=== PATIENT | male | born 1970 | race Two or more races ===

== ENCOUNTER 2016-11-20 10:29 | Emergency (ER) | payer OTHER ==
[2016-11-20 10:36] VITALS: TEMP 98; BMI 25.8
--- NOTE | 2016-11-20 11:17 | PDOC ---
History of Present Illness - History of Present Illness Initial Comments: 11/20/16 11:46 The patient is a 46 year old male, with no significant past medical history, who presents to the emergency department with 3 days of progressive testicular pain s/p lifting 80 pound bags on Saturday when he was working on his sidewalk. The patient reports his pain as pressure and throbbing to the region where his scrotal sack meets the base of his penile shaft. He states the pain was 4/10 on Saturday, however, has progressed to 7/10 in severity today. He denies taking medication for pain. The patient reports having scary orange urine on Saturday morning. The patient states his urine is yellow today, but cloudy. He denies abdominal pain. He states he is in a monogamous relationship for 7 years, but denies the use of condoms. He denies chest pain, shortness of breath, headache and dizziness. He denies fever, chills, nausea, vomit, diarrhea and constipation. He denies dysuria, frequency, urgency and hematuria. Allergies: NKDA Past surgical history: none reported Social history: Pt admits to occasional alcohol consumption. He reports he quit smoking tobacco 3 years ago, but smoked a pack a day for 5 years. <Phyllis Sheppard - Last Filed: 11/20/16 15:15> - General History Source: Patient Exam Limitations: No Limitations <Yvrose Canseco - Last Filed: 11/21/16 10:33> - General Chief Complaint: Pain Stated Complaint: testicular PAIN Time Seen by Provider: 11/20/16 10:58 Past History <Phyllis Sheppard - Last Filed: 11/20/16 15:15> - Past Medical History Other medical history: none - Psycho/Social/Smoking Cessation Hx Anxiety: No Suicidal Ideation: No Smoking History: Never smoked Have you smoked in the past 12 months: No Information on smoking cessation initiated: No Hx Alcohol Use: No Drug/Substance Use Hx: No Substance Use Type: None <Yvrose Canseco - Last Filed: 11/21/16 10:33> - Past Medical History Allergies/Adverse Reactions: Allergies Allergy/AdvReac Type Severity Reaction Status Date / Time No Known Allergies Allergy Verified 11/20/16 10:32 Home Medications: Ambulatory Orders Ciprofloxacin [Cipro -] 500 mg PO Q12H #10 tablet 11/20/16 Naproxen [Naprosyn -] 500 mg PO BID PRN #14 tablet 11/20/16 Oxycodone HCl/Acetaminophen [Percocet 5-325 mg Tablet -] 1 tab PO TID PRN #10 tablet MDD 3 11/20/16 Review of Systems - Review of Systems Able to Perform ROS?: Yes Comments:: 11/20/16 11:46 CONSTITUTIONAL: Absent: fever, no chills, no fatigue EYES: Absent: visual changes ENT: Absent: ear pain, no sore throat CARDIOVASCULAR: Absent: chest pain, no palpitations RESPIRATORY: Absent: cough, no SOB GASTROINTESTINAL: Absent: abdominal pain, no nausea, no vomiting, no constipation, no diarrhea GENITOURINARY: (+) cloudy urine and scrotal/testicular pain. Absent: dysuria, no frequency, no hematuria MUSCULOSKELETAL: Absent: back pain, no arthralgia, no myalgia SKIN: Absent: rash NEURO: Absent: headache <Phyllis Sheppard - Last Filed: 11/20/16 15:15> *Physical Exam - Vital Signs Last Vital Signs Temp Pulse Resp BP Pulse Ox 98.0 F 68 18 139/91 100 11/20/16 10:33 11/20/16 10:33 11/20/16 10:33 11/20/16 10:33 11/20/16 10:33 - Physical Exam Comments: 11/20/16 11:47 GENERAL: The patient is in no acute distress. HEAD: Normal with no signs of trauma. EYES: PERRLA, EOMI, sclera anicteric, conjunctiva clear. ENT: Ears normal, nares patent, oropharynx clear without exudates. Moist mucous membranes. NECK: Normal range of motion, supple without lymphadenopathy, JVD, or masses. LUNGS: Breath sounds equal, clear to auscultation bilaterally. No wheezes, and no crackles. HEART:Regular rate and rhythm, normal S1 and S2 without murmur, rub or gallop. ABDOMEN: Soft, nontender, normoactive bowel sounds. No guarding, no rebound. No masses palpable. EXTREMITIES: Normal range of motion, no edema. No clubbing or cyanosis. No erythema, or tenderness. NEUROLOGICAL: Cranial nerves II through XII grossly intact. Normal speech. No focal neurological deficits. MUSCULOSKELETAL: Back non-tender to palpation, no CVA tenderness SKIN: Warm, Dry, normal turgor, no rashes or lesions noted. GENITAL EXAM: +Tenderness at superior pole of bilateral testicles. No palpable hernias. No scrotal enlargement. No erythema or bruising. <Phyllis Sheppard - Last Filed: 11/20/16 15:15> - Vital Signs Last Vital Signs Temp Pulse Resp BP Pulse Ox 98.0 F 68 18 139/91 100 11/20/16 10:33 11/20/16 10:33 11/20/16 10:33 11/20/16 10:33 11/20/16 10:33 <AjithYvrose - Last Filed: 11/21/16 10:33> ED Treatment Course - RADIOLOGY Radiograph Interpretation: 11/20/16 13:27 EXAM#: TYPE/EXAM: RESULT: [id number] US/SCROTUM AND CONTENTS US HISTORY PROVIDED: Testicular pain. Real time and doppler evaluation of the testes demonstrates the following: The testes are normal in size with the right testicle measuring 5.0 x 2.5 x 2.2 cm and the left testicle measuring 4.8 x 2.4 x 2.0 cm. They are normal in texture with no evidence of testicular masses. Normal arterial flow is seen within both testes with no evidence of torsion. No epididymal abnormalities are present. There is no evidence of scrotal fluid collections. There is a moderate-sized varicocele on the left side. IMPRESSION: Left-sided varicocele, otherwise normal testicular sonogram with no evidence of torsion or acute pathology. Reported By: Rodrick Kuhn MD 11/20/16 1302 EXAM#: TYPE/EXAM: RESULT: [id number] CT/SPIRAL- RENAL-STONE CT HISTORY PROVIDED: Right flank pain TECHNIQUE: Sequential axial images were obtained from the domes of the diaphragm through the symphysis pubis utilizing urinary tract calculi protocol. The lung bases are clear. There is an 11 mm calcification within the right renal pelvis consistent with a partially obstructing calculus. There is slight dilatation of the upper collecting system. There are 2 small calculi within the lower pole of the left kidney. The largest of these measures 4 mm. There is no evidence of additional calcifications within the kidneys, ureters or urinary bladder suspicious for urinary tract calculi. There is no evidence of left-sided hydronephrosis or obstructive uropathy. No significant abnormalities of the liver, spleen, pancreas, or adrenal glands are identified. The gallbladder is clear. There is no evidence of intra-abdominal, retroperitoneal or pelvic mass lesions, fluid collections or lymphadenopathy. IMPRESSION: 1. 11 mm calculus within the right renal pelvis with mild hydronephrosis. 2. Nonobstructing calculi lower pole left kidney. Please see above discussion. Reported By: Rodrick Kuhn MD 11/20/16 1458 <Phyllis Sheppard - Last Filed: 11/20/16 15:15> - LABORATORY CBC & Chemistry Diagram: 11/20/16 16:15 11/20/16 16:15 <Yvrose Canseco - Last Filed: 11/21/16 10:33> Medical Decision Making - Medical Decision Making 11/20/16 15:15 Dr. Carlos, urology, was called at the office at this time and the patient's case was discussed. <Phyllis Sheppard - Last Filed: 11/20/16 15:15> - Medical Decision Making 11/20/16 11:14 A portion of this note was documented by scribe services under my direction. I have reviewed the details of the note, within reason, and agree with the documentation with the following case summary and management plan written by me. Nursing documentation reviewed and incorporated into medical decision making 11/20/16 15:21 This patient is a 46-year-old male who presents emergency department with a complaint of scrotal pain and tenderness. He states he was lifting heavy cement 3 days ago. His symptoms did not begin until the next day. He reports testicular pain, no swelling, no skin changes Pt has tenderness of the superior portion of the testicle No tenderness of the vas deferens No discharge Pt denies flank pain to me Will do labs Will do scrotal US UA: Laboratory Tests 11/20/16 11:59 Urine Blood 3+ H Urine Nitrite Negative Ur Leukocyte Esterase Negative Urine RBC 847 Urine WBC 1 Scrotal US: vericocele Case reviewed with Dr. Carlos Pt can be discharged to home can follow up with him in the office Labs sent 11/20/16 17:09 Laboratory Tests 11/20/16 16:15 WBC 6.7 Hgb 14.9 Hct 43.5 Plt Count 266 Laboratory Tests 11/20/16 16:15 BUN 13 Creatinine 1.1 11/20/16 17:12 the patient is comfortable I had a long conversation about pain control, patient is refusing Percocet at this time. Patient given antibiotics as well. Patient understands the importance of following up with urology. I've asked him to return to emergency department if he is unable to do so. Partially obstructing Renal Pelvis stone 11/21/16 10:33 <Yvrose Canseco - Last Filed: 11/21/16 10:33> *DC/Admit/Observation/Transfer <Phyllis Sheppard - Last Filed: 11/20/16 15:15> - Discharge Dispostion Admit: No <Yvrose Canseco - Last Filed: 11/21/16 10:33> Diagnosis at time of Disposition: Hydronephrosis with urinary obstruction due to renal calculus - Discharge Dispostion Disposition: HOME Condition at time of disposition: Stable - Prescriptions Prescriptions: Ciprofloxacin [Cipro -] 500 mg PO Q12H #10 tablet Naproxen [Naprosyn -] 500 mg PO BID PRN #14 tablet PRN Reason: Pain Oxycodone HCl/Acetaminophen [Percocet 5-325 mg Tablet -] 1 tab PO TID PRN #10 tablet MDD 3 PRN Reason: Severe Pain - Referrals Referrals: Oscar Carlos MD [Staff Physician] - - Patient Instructions Printed Discharge Instructions: DI for Kidney Stones, Kidney Stones -- Adult Additional Instructions: Thank you for coming in to the ER today Please take medications for pain Please also take Cipro Please follow up with the Urologist You may need a procedure for this stone Please monitor yourself for fevers, chills, inability to obtain or take pain medications OR if you are unable to follow up with the urologist, or any other concerns or complaints - Post Discharge Activity Work/School Note: Back to Work
[2016-11-20 12:21] LABS: URINE APPEARANCE SLCLOUDY; URINE BILIRUBIN NEGATIVE (NEGATIVE); URINE BLOOD 3+ (NEGATIVE); URINE COLOR YELLOW; URINE GLUCOSE (UA) NEGATIVE (NEGATIVE); URINE KETONE NEGATIVE (NEGATIVE); URINE LEUK ESTERASE NEGATIVE (NEGATIVE); URINE NITRITE NEGATIVE (NEGATIVE); URINE PROTEIN NEGATIVE (NEGATIVE); URINE UROBILINOGEN NEGATIVE mg/dL (0.2-1.0)
[2016-11-20] MEDS ORDERED: IBUPROFEN 600 MG TABLET (FP) PO ONE ×2 (12:49→12:55)
[2016-11-20 13:14] LABS: URINE MUCUS FEW; URINE RBC 847 /hpf (0-3); URINE WBC 1 /hpf (3-5)
[2016-11-20 15:55] VITALS: BP 132/89; PULSE 73
[2016-11-20 16:45] LABS: BASOPHIL 1.2 % (0-2.0); EOSINOPHIL 2.7 % (0-4.5); MCH 31.6 pg (25.7-33.7); MCHC 34.2 g/dl (32.0-35.9); MEAN CELL VOLUME 92.4 fl (80-96); MEAN PLT VOLUME 7.9 fl (7.5-11.1); NEUTROPHILS 41.1 % (42.8-82.8); PLATELET COUNT 266 K/MM3 (134-434); RDW 12.4 % (11.9-15.9); WHITE BLOOD COUNT 6.7 K/mm3 (4.0-10.0)
[2016-11-20 17:15] LABS: ANION GAP 9 (8-16); CALCIUM 9.5 mg/dL (8.5-10.1); CO2 28 mmol/L (21-32); CREATININE 1.1 mg/dL (0.7-1.3); GLUCOSE,RANDOM 91 mg/dL (74-106)
== END 2016-11-20 17:46 | disposition home or self-care (01) ==
LOC: JER 10:29
DX: N13.2 Hydronephrosis with renal and ureteral calculous obstruction (principal)
CPT/HCPCS: 36415; 74176; 76870-TC; 80048; 81003; 81015; 85025; 87086; 87491; 87591; 99282-25

== ENCOUNTER 2019-06-09 04:09 | Inpatient (IN) | payer BC, OTHER ==
[2019-06-09] MEDS ORDERED: ONDANSETRON 4 MG/2 ML VIAL ONE (04:26)
[2019-06-09] MEDS ORDERED: KETOROLAC TROMETHAMINE 30 MG/1 ML VIAL ONE ×2 (04:26→09:09)
--- NOTE | 2019-06-09 04:26 | PDOC ---
Attending Attestation - Resident Resident Name: Scotty Fischer - ED Attending Attestation I have performed the following: I have examined & evaluated the patient, The case was reviewed & discussed with the resident, I agree w/resident's findings & plan - HPI HPI: 06/09/19 05:35 see resident hpi - Physicial Exam PE: 06/09/19 05:36 see resident exam - Medical Decision Making 06/09/19 05:42 49-year-old male with history of kidney stones complaining of nausea and 10 out of [address] scan of the abdomen and pelvis is consistent with an obstructing left proximal ureteral stone approximately 7 mm x 5 mm x 4 mm Patient improved after Toradol and IV fluids, Zofran Due to obstruction, size of stone and persistent pain will likely admit for further management
[2019-06-09] MEDS ORDERED: ONDANSETRON 4 MG/2 ML VIAL IVPUSH ONE (04:28)
[2019-06-09] MEDS ORDERED: KETOROLAC TROMETHAMINE 30 MG/1 ML VIAL IVPUSH ONE (04:28)
[2019-06-09] MEDS ORDERED: SODIUM CHLORIDE 0.9% 500 ML INFUS.BAG IV ONE (04:28)
[2019-06-09 05:01] LABS: BASO % 0.8 % (0-2.0); EOS % 1.1 % (0-4.5); HEMATOCRIT 44.6 % (35.4-49); HEMOGLOBIN 15.3 GM/dL (11.7-16.9); LYMPH % 14.8 % (8-40); MCH 32.1 pg (25.7-33.7); MCHC 34.2 g/dl (32.0-35.9); MEAN CELL VOLUME 93.8 fl (80-96); MEAN PLT VOLUME 8.2 fl (7.5-11.1); MONO % 9.2 % (3.8-10.2); NEUT % 74.1 % (42.8-82.8); PLATELET COUNT 245 K/MM3 (134-434); RBC 4.76 M/mm3 (4.00-5.60); RDW 12.3 % (11.9-15.9); WHITE BLOOD COUNT 6.7 K/mm3 (4.0-10.0)
[2019-06-09 05:41] LABS: ALBUMIN 4.2 g/dl (3.4-5.0); BILIRUBIN,TOTAL 0.8 mg/dL (0.2-1); BLOOD UREA NITROGEN 13.8 mg/dL (7-18); CALCIUM 9.1 mg/dL (8.5-10.1); CREATININE 1.1 mg/dL (0.55-1.3); POTASSIUM 4.3 mmol/L (3.5-5.1)
--- NOTE | 2019-06-09 05:44 | PDOC ---
History of Present Illness - General Chief Complaint: Pain, Acute Stated Complaint: BACK,ABDOMINAL, POSSIBLE KIDNEY STONES Time Seen by Provider: 06/09/19 04:25 History Source: Patient Exam Limitations: No Limitations - History of Present Illness Initial Comments: 06/09/19 05:30 Stef Blount is a 49M with PMH renal calculi presenting with left-sided back and groin pain consistent with renal stones. A few years ago patient had similar pain on right side lower back, found to have renal stones in both kidneys with stone in R ureter, required extracorporeal shock wave lithotripsy. Today says he feels the exact same symptoms as then, but on the left side lower back with associated pain in the left groin. Started at 1AM and woke from sleep. Has had nausea and one episode of NBNB vomiting. Denies constipation/diarrhea. Has had some brown-colored urine last week, but denies bloody urine or discharge. Has not seen any PMD for years. Past History - Past Medical History Allergies/Adverse Reactions: Allergies Allergy/AdvReac Type Severity Reaction Status Date / Time No Known Allergies Allergy Verified 06/09/19 04:19 Home Medications: Ambulatory Orders NK [No Known Home Medication] 06/09/19 COPD: No Kidney Stones: Yes - Psycho Social/Smoking Cessation Hx Smoking History: Never smoked Have you smoked in the past 12 months: No Hx Alcohol Use: No Drug/Substance Use Hx: No Substance Use Type: None Review of Systems - Review of Systems Able to Perform ROS?: Yes Constitutional: No: Chills, Fever HEENTM: No: Eye Pain, Double Vision, Dental Problems, Difficulty Swallowing Respiratory: No: Cough, Shortness of Breath, Wheezing Cardiac (ROS): No: Chest Pain, Edema, Irregular Heart Rate, Lightheadedness, Palpitations, Syncope, Chest Tightness ABD/GI: Yes: Nausea, Vomiting. No: Constipated, Diarrhea, Poor Appetite, Poor Fluid Intake : Yes: Dysuria, Hematuria Musculoskeletal: Yes: Back Pain Integumentary: No: Symptoms Reported Neurological: No: Headache, Numbness, Paresthesia Endocrine: No: Symptoms Reported Hematologic/Lymphatic: No: Symptoms Reported All Other Systems: Reviewed and Negative *Physical Exam - Vital Signs Last Vital Signs Temp Pulse Resp BP Pulse Ox 98.1 F 66 20 152/94 98 06/09/19 04:10 06/09/19 04:10 06/09/19 04:10 06/09/19 04:10 06/09/19 04:10 - Physical Exam General Appearance: Yes: Nourished, Appropriately Dressed, Moderate Distress, Other (sitting up in bed wearing multiple layers of clothes, reluctant to turn) HEENT: positive: EOMI, TRAVIS, Normal Voice, Symmetrical, Pharynx Normal. negative: Scleral Icterus (R), Scleral Icterus (L), Muffled/Hoarse voice, Pharyngeal Erythema, Tonsillar Exudate Neck: positive: Trachea midline, Normal Thyroid, Supple. negative: Tender, Rigid, Lymphadenopathy (R), Lymphadenopathy (L) Respiratory/Chest: positive: Lungs Clear, Normal Breath Sounds. negative: Chest Tender, Respiratory Distress, Accessory Muscle Use, Labored Respiration, Decreased Breath Sounds, Crackles, Rales, Rhonchi, Stridor, Wheezing Cardiovascular: positive: Regular Rhythm, Regular Rate. negative: Edema, Murmur Gastrointestinal/Abdominal: positive: Normal Bowel Sounds, Tender (L inguinal), Flat, Soft. negative: Protuberent, Distended, Guarding, Rebound, Hepatomegaly Musculoskeletal: positive: Normal Inspection, CVA Tenderness, CVA Tenderness (L) . negative: Vertebral Tenderness Extremity: positive: Normal Capillary Refill, Normal Inspection, Normal Range of Motion, Pelvis Stable. negative: Tender, Pedal Edema, Swelling Integumentary: positive: Normal Color, Warm, Diaphoresis Neurologic: positive: Fully Oriented, Alert, Normal Mood/Affect, Normal Response ED Treatment Course - LABORATORY CBC & Chemistry Diagram: 06/09/19 04:30 06/09/19 04:30 - ADDITIONAL ORDERS Additional order review: 06/09/19 04:30 RBC 4.76 MCV 93.8 MCHC 34.2 RDW 12.3 MPV 8.2 Neutrophils % 74.1 D Lymphocytes % 14.8 D Monocytes % 9.2 Eosinophils % 1.1 Basophils % 0.8 - RADIOLOGY Radiology Studies Ordered: Category Date Time Status SPIRAL- RENAL-STONE CT [CT] Stat CT Scan 06/09/19 04:28 Taken - Medications Given in the ED: ED Medications Discontinued Medications Generic Name Dose Route Start Last Admin Trade Name Freq PRN Reason Stop Dose Admin Ketorolac Tromethamine 30 mg 06/09/19 04:28 06/09/19 04:38 Toradol Injection - IVPUSH 06/09/19 04:29 30 mg ONCE ONE Administration Ondansetron HCl 4 mg 06/09/19 04:28 06/09/19 04:38 Zofran Injection IVPUSH 06/09/19 04:29 4 mg NOW ONE Administration Sodium Chloride 1,000 ml 06/09/19 04:28 06/09/19 04:38 Normal Saline - IV 06/09/19 04:29 1,000 ml ONCE ONE Administration Medical Decision Making - Medical Decision Making 06/09/19 05:51 Patient presents with left lower back and groin pain with sudden onset and history of renal stones with ? hematuria most consistent with renal calculus. Placing IV, getting CBC/CMP and UA for eval hematuria, giving Zofran, IV NS, and 30mg Toradol for symptoms. Spiral CT ordered. Patient felt better after Toradol. VS stable, other intrabdominal processes less likely, ddx includes pancreatitis, gastritis, pyelonephritis. CT shows moderate left hydronephrosis with a proximal left ureteral 7 mm stone located in the proximal left ureter and L renal nephrolithiasis. Will need admission for urology consult and lithotripsy evaluation given stone size. 06/09/19 05:59 Labs notable for: - CMP WNL - CBC WNL Getting urine sample now. 06/09/19 06:13 [facility] admitting MDMB sent. 06/09/19 06:[address] Ronal Crisostomo, would like NPO and admit. Pending hospitalist callback. 06/09/19 07:02 Signed out to day team Dr. Wright. Discharge - Discharge Information Problems reviewed: Yes Clinical Impression/Diagnosis: Ureteral calculus, Hydronephrosis with urinary obstruction due to renal calculus Condition: Fair - Admission Yes - Follow up/Referral - Patient Discharge Instructions - Post Discharge Activity
[2019-06-09 06:38] LABS: EPI CELLS 3.2 /HPF (0-5/HPF); HYALINE CASTS 12 /lpf (0-8); URINE APPEARANCE CLOUDY; URINE BACTERIA 2.2 /hpf (NEGATIVE); URINE BILIRUBIN NEGATIVE (NEGATIVE); URINE COLOR YELLOW; URINE GLUCOSE (UA) NEGATIVE (NEGATIVE); URINE KETONE NEGATIVE (NEGATIVE); URINE LEUK ESTERASE NEGATIVE (NEGATIVE); URINE NITRITE NEGATIVE (NEGATIVE); URINE PROTEIN 2+ (NEGATIVE); URINE RBC 385 /hpf (0-4); URINE UROBILINOGEN 0.2 mg/dL (0.2-1.0); URINE WBC 4 /hpf (0-5)
--- NOTE | 2019-06-09 07:05 | PDOC ---
*Physical Exam - Vital Signs Last Vital Signs Temp Pulse Resp BP Pulse Ox 98.1 F 66 20 152/94 98 06/09/19 04:10 06/09/19 04:10 06/09/19 04:10 06/09/19 04:10 06/09/19 06:20 ED Treatment Course - LABORATORY CBC & Chemistry Diagram: 06/09/19 04:30 06/09/19 04:30 - ADDITIONAL ORDERS Additional order review: Laboratory Results 06/09/19 06/09/19 06:15 04:30 Sodium 139 Potassium 4.3 Chloride 104 Carbon Dioxide 27 Anion Gap 7 L BUN 13.8 Creatinine 1.1 Est GFR (CKD-EPI)AfAm 91.52 Est GFR (CKD-EPI)NonAf 78.96 Random Glucose 99 Calcium 9.1 Total Bilirubin 0.8 AST 23 ALT 24 Alkaline Phosphatase 49 Total Protein 8.0 Albumin 4.2 Urine Color Yellow Urine Appearance Cloudy Urine pH 7.0 Ur Specific [place] 1.016 Urine Protein 2+ H Urine Glucose (UA) Negative Urine Ketones Negative Urine Blood 3+ H Urine Nitrite Negative Urine Bilirubin Negative Urine Urobilinogen 0.2 Ur Leukocyte Esterase Negative Urine WBC (Auto) 4 Urine RBC (Auto) 385 Urine Casts (Auto) 12 U Epithel Cells (Auto) 3.2 Urine Bacteria (Auto) 2.2 06/09/19 04:30 RBC 4.76 MCV 93.8 MCHC 34.2 RDW 12.3 MPV 8.2 Neutrophils % 74.1 D Lymphocytes % 14.8 D Monocytes % 9.2 Eosinophils % 1.1 Basophils % 0.8 - RADIOLOGY Radiograph Interpretation: Spiral Abd CT: THIS IS A PRELIMINARY REPORT FROM [facility] DATE OF SERVICE: 2019-06-09 04:58:44 IMAGES: [id number] EXAM: CT ABDOMEN WITHOUT CONTRAST AND CT PELVIS WITHOUT CONTRAST HISTORY: 49-Year-Old Male Assess For Stone. COMPARISON: None. FINDINGS: Mild basilar atelectasis. Lack of intravenous contrast limits this exam. Mild hepatomegaly. Noncontrast evaluation gallbladder pancreas and adrenal glands and right kidney appear unremarkable. Moderate left hydronephrosis with a proximal left ureteral 7 x 5 x 4 mm stone located approximately 14 cm upstream from the left ureterovesicular junction. Left kidney 7 mm nonobstructing nephrolithiasis.Lack of oral contrast limits this exam. Noncontrast evaluation stomach small bowel and appendix appear unremarkable. No appendicitis. Mild nonspecific wall thickening of the ascending colon most likely due to mild infectious or inflammatory colitis. Bladder appears unremarkable. Prostate appears unremarkable. Mild degenerative disc disease. Small umbilical hernia omental fat without incarceration. Subcentimeter mesenteric lymph nodes noted. IMPRESSION: Moderate left hydronephrosis with a proximal left ureteral 7 mm stone located in the proximal left ureter. Left kidney nonobstructing nephrolithiasis. Mild nonspecific wall thickening of the ascending colon most likely due to mild infectious or inflammatory colitis. This CT exam was performed using one or more of the following dose reduction techniques: automated exposure control, adjustment of the mA and/or kV according to patient size, use of iterative reconstruction technique. One or more of the following dose reduction techniques were used: automated exposure control, adjustment of the mA and/or kV according to patient size, use of iterative reconstructive technique. THIS DOCUMENT HAS BEEN ELECTRONICALLY SIGNED Nikita Ibarra MD 06/09/2019 05:21 EST - Medications Given in the ED: ED Medications Discontinued Medications Generic Name Dose Route Start Last Admin Trade Name Freq PRN Reason Stop Dose Admin Ketorolac Tromethamine 30 mg 06/09/19 04:28 06/09/19 04:38 Toradol Injection - IVPUSH 06/09/19 04:29 30 mg ONCE ONE Administration Ondansetron HCl 4 mg 06/09/19 04:28 06/09/19 04:38 Zofran Injection IVPUSH 06/09/19 04:29 4 mg NOW ONE Administration Sodium Chloride 1,000 ml 06/09/19 04:28 06/09/19 04:38 Normal Saline - IV 06/09/19 04:29 1,000 ml ONCE ONE Administration Discharge - Discharge Information Clinical Impression/Diagnosis: Ureteral calculus, Hydronephrosis with urinary obstruction due to renal calculus Condition: Fair - Follow up/Referral - Patient Discharge Instructions - Post Discharge Activity
[2019-06-09] MEDS ORDERED: ACETAMINOPHEN 1000 MG/100 ML VIAL (NON FORMULARY) IVPB PRN (07:43)
[2019-06-09] MEDS ORDERED: SODIUM CHLORIDE 1,000 ML IV SCH ×3 (07:45→22:39)
[2019-06-09] MEDS ORDERED: DEXTROSE 5%-NORMAL SALINE 1,000 ML IV SCH (08:15)
--- NOTE | 2019-06-09 08:18 | PN ---
Teaching Attending Note Name of Resident: Sharon Delgado ATTENDING PHYSICIAN STATEMENT I saw and evaluated the patient. I reviewed the resident's note and discussed the case with the resident. I agree with the resident's findings and plan as documented. SUBJECTIVE: Patient is a 49yom with PMhx of kidney stones, presented to the ED due to severe left flank pain that started yesterday. no fever or chills, no shortness of breath. severe left flank pain 10/10. OBJECTIVE: Vital Signs Temperature 98.1 F 06/09/19 04:10 Pulse Rate 66 06/09/19 04:10 Respiratory Rate 20 06/09/19 04:10 Blood Pressure 152/94 06/09/19 04:10 O2 Sat by Pulse Oximetry (%) 98 06/09/19 06:20 GENERAL: The patient is awake, alert, and fully oriented, in no acute distress. HEAD: Normal with no signs of trauma. EYES: PERRL, extraocular movements intact, sclera anicteric, conjunctiva clear. ENT: Ears normal, oropharynx clear without exudates, moist mucous membranes. NECK: Trachea midline, full range of motion, supple. LUNGS: Breath sounds equal, clear to auscultation bilaterally, no wheezes, no crackles, no accessory muscle use. HEART: Regular rate and rhythm, S1, S2 without murmur, rub or gallop. ABDOMEN: Soft, nontender, nondistended, normoactive bowel sounds, no guarding, no rebound, no hepatosplenomegaly, no masses. EXTREMITIES: 2+ pulses, warm, well-perfused, no edema. NEUROLOGICAL: Cranial nerves II through XII grossly intact. Normal speech, gait not observed. PSYCH: Normal mood, normal affect. SKIN: Warm, dry, normal turgor, no rashes or lesions noted : + Wilkes bloody CBCD WBC 6.7 K/mm3 (4.0-10.0) 06/09/19 04:30 RBC 4.76 M/mm3 (4.00-5.60) 06/09/19 04:30 Hgb 15.3 GM/dL (11.7-16.9) 06/09/19 04:30 Hct 44.6 % (35.4-49) 06/09/19 04:30 MCV 93.8 fl (80-96) 06/09/19 04:30 MCHC 34.2 g/dl (32.0-35.9) 06/09/19 04:30 RDW 12.3 % (11.9-15.9) 06/09/19 04:30 Plt Count 245 K/MM3 (134-434) 06/09/19 04:30 MPV 8.2 fl (7.5-11.1) 06/09/19 04:30 CMP Sodium 139 mmol/L (136-145) 06/09/19 04:30 Potassium 4.3 mmol/L (3.5-5.1) 06/09/19 04:30 Chloride 104 mmol/L (98-107) 06/09/19 04:30 Carbon Dioxide 27 mmol/L (21-32) 06/09/19 04:30 Anion Gap 7 MMOL/L (8-16) L 06/09/19 04:30 BUN 13.8 mg/dL (7-18) 06/09/19 04:30 Creatinine 1.1 mg/dL (0.55-1.3) 06/09/19 04:30 Random Glucose 99 mg/dL (74-106) 06/09/19 04:30 Calcium 9.1 mg/dL (8.5-10.1) 06/09/19 04:30 Total Bilirubin 0.8 mg/dL (0.2-1) 06/09/19 04:30 AST 23 U/L (15-37) 06/09/19 04:30 ALT 24 U/L (13-61) 06/09/19 04:30 Alkaline Phosphatase 49 U/L (45-117) 06/09/19 04:30 Total Protein 8.0 g/dl (6.4-8.2) 06/09/19 04:30 Albumin 4.2 g/dl (3.4-5.0) 06/09/19 04:30 Current Medications Generic Name Dose Route Start Last Admin Trade Name Freq PRN Reason Stop Dose Admin Acetaminophen 1,000 mg 06/09/19 07:43 Ofirmev Injection - IVPB Q6H PRN PAIN LEVEL 4 - 6 Dextrose/Sodium Chloride 1,000 mls @ 125 mls/hr 06/09/19 08:15 D5-Ns - IV ASDIR AVINASH Ketorolac Tromethamine 15 mg 06/09/19 10:00 Toradol Injection - IVPUSH 06/14/19 09:59 Q6H PRN PAIN LEVEL 6-10 Home Medications Medication Instructions Recorded NK [No Known Home Medication] 06/09/19 CT shows moderate left hydronephrosis with a proximal left ureteral 7 mm stone located in the proximal left ureter and L renal nephrolithiasis. ASSESSMENT AND PLAN: Patient is a 49yom with PMhx of kidney stones presented with Nausea with left flank pain 10/10 and is found to have an obstructing left proximal ureteral stone approximately 7 mm x 5 mm x 4 mm. given IV Toradol AND Zofran, in the ED. # Obstructing left proximal ureteral stone: IVF, Dr. crisostomo for consult s/p lithotripsy today by dr Neftaly Crisostomo + wilkes now x 16hrs in am to remove the wilkes and voiding trial. DVT Px: Scds p
--- NOTE | 2019-06-09 08:34 | HP ---
CHIEF COMPLAINT:Left flank pain PCP:none HISTORY OF PRESENT ILLNESS: Patient is a 49 year old male with past history of kidney stones, presented to the ED due to severe left flank pain that started yesterday. Patient reported he started experiencing the pain about a month ago, described as intermittent left flank pain radiating to the left groin, with intermitent episodes of blood in the urine. No medications were taken and pain and hematuria would resolve on its own. Patient also reported he had a right kidney stone about 2 years ago to which he underwent lithotripsy. He said he was able to pass a small brown- colored stone afterwards and gave it to his urologist, but was not told what kind of stone. At that time as well, he was reported to have 4mm left kidney stone, but no intervention was done. Yesterday, patient started experiencing severe 10/10 left flank pain radiating to the left groin, accompanied by nausea and NBNB vomiting. Patient also reported hematuria, but denies burning or frequency. Denies any fever, chills, headache, dizziness, chest pain, SOB, abdominal pain, diarrhea. ER course was notable for: (1)Spiral CT - moderate Left hydronephrosis with proximal left ureteral 7mm stone in proximal left ureter (2)UA: 2+LETICIA, 3+Blood, 4WBC, 385 RBC (3) Recent Travel:denies PAST MEDICAL HISTORY: kidney stones PAST SURGICAL HISTORY: Right extracorporeal shock wave lithotripsy Social History: Smoking:denies Alcohol:occasional Drugs: denies Family History: Mother - pre-DM Father - unknown Allergies No Known Allergies Allergy (Verified 06/09/19 04:19) HOME MEDICATIONS: Home Medications Medication Instructions Recorded NK [No Known Home Medication] 06/09/19 REVIEW OF SYSTEMS CONSTITUTIONAL: Absent: fever, chills, diaphoresis, generalized weakness, malaise, loss of appetite, weight change HEENT: Absent: rhinorrhea, nasal congestion, throat pain, throat swelling, difficulty swallowing, mouth swelling, ear pain, eye pain, visual changes CARDIOVASCULAR: Absent: chest pain, syncope, palpitations, irregular heart rate, lightheadedness, peripheral edema RESPIRATORY: Absent: cough, shortness of breath, dyspnea with exertion, orthopnea, wheezing, stridor, hemoptysis GASTROINTESTINAL: Absent: abdominal pain, abdominal distension, nausea, vomiting, diarrhea, constipation, melena, hematochezia GENITOURINARY: hematuria, Left flank pain Absent: dysuria, frequency, urgency, hesitancy, genital pain MUSCULOSKELETAL: Absent: myalgia, arthralgia, joint swelling, back pain, neck pain SKIN: Absent: rash, itching, pallor HEMATOLOGIC/IMMUNOLOGIC: Absent: easy bleeding, easy bruising, lymphadenopathy, frequent infections ENDOCRINE: Absent: unexplained weight gain, unexplained weight loss, heat intolerance, cold intolerance NEUROLOGIC: Absent: headache, focal weakness or paresthesias, dizziness, unsteady gait, seizure, mental status changes, bladder or bowel incontinence PSYCHIATRIC: Absent: anxiety, depression, suicidal or homicidal ideation, hallucinations. PHYSICAL EXAMINATION Vital Signs - 24 hr 06/09/19 06/09/19 04:10 06:20 Temperature 98.1 F Pulse Rate 66 Respiratory 20 Rate Blood Pressure 152/94 O2 Sat by Pulse 98 98 Oximetry (%) GENERAL: Awake, alert, and fully oriented, in no acute distress. HEAD: Normal with no signs of trauma. EYES: PERRLA, EOMI, sclera anicteric, conjunctiva clear. EARS, NOSE, THROAT: Moist mucous membranes. NECK: Normal range of motion, supple. LUNGS: Breath sounds equal, clear to auscultation bilaterally. HEART: Regular rate and rhythm, normal S1 and S2 without murmur, rub or gallop. ABDOMEN: Soft, nontender, not distended, normoactive bowel sounds. MUSCULOSKELETAL: Normal range of motion at all joints. + Left CVA tenderness. LOWER EXTREMITIES: 2+ pulses, warm, well-perfused. No peripheral edema. NEUROLOGICAL: Cranial nerves II-XII intact. Normal speech. Normal gait. PSYCHIATRIC: Cooperative. Good eye contact. Appropriate mood and affect. SKIN: Warm, dry, normal turgor. Laboratory Results - last 24 hr 06/09/19 06/09/19 06/09/19 04:30 04:30 06:15 WBC 6.7 RBC 4.76 Hgb 15.3 Hct 44.6 MCV 93.8 MCH 32.1 MCHC 34.2 RDW 12.3 Plt Count 245 MPV 8.2 Absolute Neuts (auto) 5.0 Neutrophils % 74.1 D Lymphocytes % 14.8 D Monocytes % 9.2 Eosinophils % 1.1 Basophils % 0.8 Nucleated RBC % 0 Sodium 139 Potassium 4.3 Chloride 104 Carbon Dioxide 27 Anion Gap 7 L BUN 13.8 Creatinine 1.1 Est GFR (CKD-EPI)AfAm 91.52 Est GFR (CKD-EPI)NonAf 78.96 Random Glucose 99 Calcium 9.1 Total Bilirubin 0.8 AST 23 ALT 24 Alkaline Phosphatase 49 Total Protein 8.0 Albumin 4.2 Urine Color Yellow Urine Appearance Cloudy Urine pH 7.0 Ur Specific Jasper 1.016 Urine Protein 2+ H Urine Glucose (UA) Negative Urine Ketones Negative Urine Blood 3+ H Urine Nitrite Negative Urine Bilirubin Negative Urine Urobilinogen 0.2 Ur Leukocyte Esterase Negative Urine WBC (Auto) 4 Urine RBC (Auto) 385 Urine Casts (Auto) 12 U Epithel Cells (Auto) 3.2 Urine Bacteria (Auto) 2.2 ASSESSMENT/PLAN: Patient is a 49 year old male with past history of kidney stones, presented to the ED due to severe left flank pain that started yesterday. #Left ureterolithiasis -Spiral CT - moderate Left hydronephrosis with proximal left ureteral 7mm stone in proximal left ureter -Urology (Dr. Crisostomo) consulted. -will keep patient NPO -pain control with IV Toradol and Tylenol, Morphine prn -IV fluids -Tamsulosin 0.4 mg daily #FEN -IV D5-NS at 125cc/hr -Electrolytes wnl, routine bmp monitoring -NPO #Prophylaxis -SCDs, early ambulation #Disposition -full code -admit to med surg Visit type - Emergency Visit Emergency Visit: Yes ED Registration Date: 06/09/19 Care time: The patient presented to the Emergency Department on the above date and was hospitalized for further evaluation of their emergent condition. - New Patient This patient is new to me today: Yes Date on this admission: 06/09/19 - Critical Care Critical Care patient: No ATTENDING PHYSICIAN STATEMENT I saw and evaluated the patient. I reviewed the resident's note and discussed the case with the resident. I agree with the resident's findings and plan as documented. SUBJECTIVE: OBJECTIVE: ASSESSMENT AND PLAN:
[2019-06-09] MEDS ORDERED: ONDANSETRON 4 MG/2 ML VIAL IVPUSH PRN (08:54)
[2019-06-09] MEDS ORDERED: KETOROLAC TROMETHAMINE 15 MG/ML VIAL ONE (09:18)
[2019-06-09] MEDS: KETOROLAC TROMETHAMINE 15 MG/ML VIAL IVPUSH PRN (09:29)
--- NOTE | 2019-06-09 09:55 | CON.GU ---
Consult Consult Specialty:: urology dictated - Alcohol/Substance Use Hx Alcohol Use: No - Smoking History Smoking history: Never smoked Have you smoked in the past 12 months: No Home Medications - Allergies Allergies/Adverse Reactions: Allergies Allergy/AdvReac Type Severity Reaction Status Date / Time No Known Allergies Allergy Verified 06/09/19 04:19 - Home Medications Home Medications: Ambulatory Orders NK [No Known Home Medication] 06/09/19 Physical Exam- Vital Signs: Vital Signs Temperature 98.1 F 06/09/19 04:10 Pulse Rate 73 06/09/19 09:30 Respiratory Rate 18 06/09/19 09:30 Blood Pressure 108/75 06/09/19 09:30 O2 Sat by Pulse Oximetry (%) 96 06/09/19 09:30 Labs: CBC, BMP 06/09/19 04:30 06/09/19 04:30
[2019-06-09 10:09] LABS: INR 1.02 (0.83-1.09)
[2019-06-09 10:11] LABS: ACTIVATED PTT 29.7 SECONDS (25.2-36.5)
--- NOTE | 2019-06-09 10:33 | EKG ---
Test Reason : Blood Pressure : / mmHG Vent. Rate : 072 BPM Atrial Rate : 072 BPM P-R Int : 154 ms QRS Dur : 088 ms QT Int : 378 ms P-R-T Axes : 040 017 039 degrees QTc Int : 413 ms NORMAL SINUS RHYTHM NORMAL ECG NO PREVIOUS ECGS AVAILABLE Confirmed by Gerardo Goff MD ([id number]) on 06/09/2019 10:32:42 AM Referred By: Confirmed By:Gerardo Goff MD
[2019-06-09 11:25] VITALS: BMI 25.9
--- NOTE | 2019-06-09 11:31 | CONS ---
DATE OF CONSULTATION: DATE OF DICTATION: 06/09/2019 HISTORY: Patient is a 49-year-old male admitted via the emergency room with acute onset of left flank pain. This was colicky in nature, severe, radiated to the left groin. Patient does have history of kidney stones. He is also complaining of nausea. A CAT scan of the abdomen without contrast revealed a 7-mm obstructing left proximal ureteral stone with proximal hydroureteronephrosis. The patient denies any alcohol or tobacco use. He denies any fever or chills. PHYSICAL EXAMINATION: Abdomen: Reveals a tender left flank. Genitourinary: The patient has grossly bloody urine. Genitalia are atraumatic. Vital Signs: His temperature is 98.1, blood pressure 152/94, pulse oximetry 98. DIAGNOSTIC DATA: Patient's white count was 6.7, hemoglobin 15.3, hematocrit 44.6, platelets 245, BUN 13.8, creatinine 1.1. Random glucose 99. Liver enzymes were normal. A urine was grossly bloody. PLAN: The patient is admitted via the emergency room for IV fluids, pain management, and treatment of his left hydronephrosis. Due to the size of the stone and the severity of symptoms, we will schedule in 12 hours for a possible left ureteroscopic laser lithotripsy if there is no spontaneous passage. Patient will also need the stone workup as an outpatient. We will follow with you. QUINOTN SONG M.D. [id number]
[2019-06-09] MEDS ORDERED: PROPOFOL 20 ML ONE (12:29)
[2019-06-09] MEDS ORDERED: MIDAZOLAM HCL 2 MG/2 ML SINGLE DOSE VIAL ONE (12:29)
[2019-06-09] MEDS ORDERED: SUCCINYLCHOLINE CHLORIDE 200 MG/10 ML SYRINGE ONE (12:30)
[2019-06-09] MEDS ORDERED: LIDOCAINE HCL/PF 2% SDV 5ML VIAL ONE (12:30)
[2019-06-09] MEDS ORDERED: LACTATED RINGERS SOLUTION 1,000 ML IV SCH (12:45)
[2019-06-09] MEDS ORDERED: ceFAZolin SODIUM 1 GM VIAL IVPB ONE (12:47)
[2019-06-09] MEDS ORDERED: ACETAMINOPHEN 325 MG TABLET (FP) PO PRN (13:45)
[2019-06-09] MEDS ORDERED: TAMSULOSIN HCL 0.4 MG CAP PO ONE (13:45)
[2019-06-09] MEDS ORDERED: DEXTROSE 5%-0.45% SALINE 1,000 ML IV SCH ×2 (13:45)
--- NOTE | 2019-06-09 13:56 | OP ---
Operative Note - Note: Operative Date: 06/09/19 Pre-Operative Diagnosis: lt. hydro, lt. ureteral stone Operation: lull with jj stent Findings: LLt. ureteral stone with lt. hydro Post-Operative Diagnosis: Same as Pre-op Surgeon: Ronal Crisostomo Anesthesia: General Specimens Removed: urine, gravel Estimated Blood Loss (mls): 0 Drains & Tubes with Location: 24cm 6f lt. jj stent and 18f 10cc wilkes Drains, Volume Out (mls): 0 Blood Volume Replaced (mls): 0 Fluid Volume Replaced (mls): 0 Operative Report Dictated: Yes
[2019-06-09 14:32] LABS: EPI CELLS 2.3 /HPF (0-5/HPF); HYALINE CASTS 0 /lpf (0-8); PH,URINE >= 9.0 (5.0-8.0); URINE APPEARANCE CLEAR; URINE BILIRUBIN NEGATIVE (NEGATIVE); URINE COLOR YELLOW; URINE GLUCOSE (UA) NEGATIVE (NEGATIVE); URINE KETONE NEGATIVE (NEGATIVE); URINE LEUK ESTERASE NEGATIVE (NEGATIVE); URINE NITRITE NEGATIVE (NEGATIVE); URINE PROTEIN NEGATIVE (NEGATIVE); URINE RBC 307 /hpf (0-4); URINE UROBILINOGEN 0.2 mg/dL (0.2-1.0); URINE WBC 1 /hpf (0-5)
[2019-06-09] MEDS: HYDROmorphone HCl 2 MG/ML VIAL IVPB PRN ×2 (15:08→20:50)
[2019-06-09] MEDS: CEPHALEXIN MONOHYDRATE 500 MG CAPSULE (UD) PO SCH ×2 (15:08→21:56)
[2019-06-10] MEDS: KETOROLAC TROMETHAMINE 15 MG/ML VIAL IVPUSH PRN ×3 (00:51→12:47)
[2019-06-10] MEDS: CEPHALEXIN MONOHYDRATE 500 MG CAPSULE (UD) PO SCH ×2 (05:47→12:47)
[2019-06-10 08:34] LABS: BASO % 0.4 % (0-2.0); EOS % 0.6 % (0-4.5); HEMATOCRIT 37.7 % (35.4-49); HEMOGLOBIN 13.1 GM/dL (11.7-16.9); LYMPH % 28.5 % (8-40); MCH 32.2 pg (25.7-33.7); MCHC 34.7 g/dl (32.0-35.9); MEAN CELL VOLUME 92.8 fl (80-96); NEUT % 61.5 % (42.8-82.8); PLATELET COUNT 218 K/MM3 (134-434); RBC 4.06 M/mm3 (4.00-5.60); RDW 11.8 % (11.9-15.9); WHITE BLOOD COUNT 7.5 K/mm3 (4.0-10.0)
[2019-06-10 08:55] LABS: BLOOD UREA NITROGEN 10.1 mg/dL (7-18); CALCIUM 8.4 mg/dL (8.5-10.1); PHOSPHOROUS 3.3 mg/dL (2.5-4.9); POTASSIUM 3.8 mmol/L (3.5-5.1)
--- NOTE | 2019-06-10 14:25 | OP ---
DATE OF OPERATION: 06/09/2019 PREOPERATIVE DIAGNOSES: Left hydroureteronephrosis, bilateral nephrolithiasis, left upper ureteral stone, 7 mm in diameter. POSTOPERATIVE DIAGNOSES: Left hydroureteronephrosis, bilateral nephrolithiasis, left upper ureteral stone, 7 mm in diameter. OPERATIVE PROCEDURE: Cystourethroscopy, left retrograde pyelogram, left ureteroscopy, left laser lithotripsy and placement of a left JJ stent. ANESTHESIA: General. Under above-stated anesthesia patient was prepped and draped in the usual sterile manner. He was placed in the dorsal lithotomy position. External genitalia were within normal limits. Testes were normal in size and consistency. No hernias or hydroceles were palpated. Prostate was 2+, smooth, benign and nontender. Cystoscopy under direct vision revealed a normal anterior urethra. Prostatic urethra revealed mild BPH. There was a high median lobe but no lateral lobe kissing. The verumontanum was hypertrophic. The utricle was prominent with submucosal melanin specks. The bladder was entered. Urine was collected for culture and sensitivity. Inspection of the bladder revealed a generalized grade 1 trabeculation. No lesions were noted. No calculi were seen. Ureteral orifices were within normal limits. Efflux of clear urine was seen from the right. None was seen from the left. A flexi-tip catheter was placed into the left ureteral orifice and approximately 5 mL of contrast fluid was injected. X-rays revealed a filling defect in the left upper ureter with proximal hydroureteronephrosis. There was also a delay in drainage at the level of the ureterovesical junction. A glidewire was passed up the left renal unit. The cystoscope was removed. A semirigid ureteroscope was inserted. Ureteroscopy revealed a stone in the lower portion of the lower 1/3 ureter. It appeared to be blocking the entire lumen. Therefore, a 350-holmium laser fiber was used at an energy of 0.5 and a rate of 10. The stone was dusted into small pieces of sand. A continuation of the ureteroscope revealed the stone in the left upper ureter had migrated into the left lower caliceal system. No other lesions were seen. Therefore, the ureteroscope was removed. A 24-cm 6-[place] Zealander left JJ stent was left in place. X-rays confirmed good position of the stent. A Matthew catheter was also placed and connected to a drainage bag. The patient tolerated the procedure well. He returned to the recovery room in good condition. Inez [id number]
[2019-06-10 15:00] VITALS: BP 151/91; PULSE 68; TEMP 97.9
--- NOTE | 2019-06-10 15:11 | PN ---
Teaching Attending Note Name of Resident: Gary Roa ATTENDING PHYSICIAN STATEMENT I saw and evaluated the patient. I reviewed the resident's note and discussed the case with the resident. I agree with the resident's findings and plan as documented. SUBJECTIVE: No fever or chills. has pain in penis with urination and pain inL flank when he urinate. No N/V. urinated after removing wilkes. hematuria OBJECTIVE: NAD CV: RRR Lungs: CTAB Ext : No edema or erythema Abd: soft, ND, TTP in LLQ, and LUQ. no rebound tenderness or guarding. ASSESSMENT AND PLAN: 49 y/o man with h.o nephrolithiasis who presented with L sided And paina nd was found to have L sided obstructing stone with hydronephrosis 1- Obstructing L sided proximal ureteral stone with Whittaker - s/p stent placement - team d/w uro: keflex is recommended for 4 more days - hematuria and minimal flank pain is expected after procedure - f/u with uro in 1 week. I informed patient that stent needs to be removed - he could void after wilkes removal - tylenol and ibuprofen for pain after dc Dc home
--- NOTE | 2019-06-10 15:30 | PN ---
Progress Note (short form) - Note Progress Note: PODS#1 S/P LULL WITH JJ STENT, ABD.-SOFT,N/T ,VOIDIONG WELL, PT. IS UROLOGICALLY OK FOR D/C.
--- NOTE | 2019-06-10 15:40 | DS ---
Physical Exam: SUBJECTIVE: Patient seen and examined at the bedside. Stated he is feeling well. Denied fever, chills, cp, sob, abd pain, n/v/c/d, headaches, dizziness, lightheadedness, dysuria. Noted that he continues to have hematuria. OBJECTIVE: Vital Signs Period Temp Pulse Resp BP Sys/P[place]leton Pulse Ox Last 24 Hr 97.6 F-98.1 F 68-86 19-21 120-151/69-91 100 PHYSICAL EXAM GENERAL: The patient is awake, alert, and fully oriented, in no acute distress. ENT: Oropharynx clear without exudates, moist mucous membranes. LUNGS: Breath sounds equal, clear to auscultation bilaterally, no wheezes, no crackles, no accessory muscle use. HEART: Regular rate and rhythm, S1, S2 without murmur. ABDOMEN: Soft, nontender, nondistended, normoactive bowel sounds, no guarding, no rebound, no masses. No suprapubic tenderness. No CVA tenderness. EXTREMITIES: 2+ pulses, warm, well-perfused, no edema. NEUROLOGICAL: Cranial nerves II through XII grossly intact. 5/5 muscle strength upper and lower extremities. PSYCH: Normal mood, normal affect. SKIN: Warm, dry, normal turgor, no rashes or lesions noted. LABS Laboratory Results - last 24 hr 06/09/19 06/10/19 06/10/19 16:00 07:38 07:38 WBC 7.5 RBC 4.06 Hgb 13.1 Hct 37.7 D MCV 92.8 MCH 32.2 MCHC 34.7 RDW 11.8 L Plt Count 218 MPV 8.0 Absolute Neuts (auto) 4.6 Neutrophils % 61.5 Lymphocytes % 28.5 D Monocytes % 9.0 Eosinophils % 0.6 Basophils % 0.4 Nucleated RBC % 0 Sodium 140 Potassium 3.8 Chloride 106 Carbon Dioxide 29 Anion Gap 5 L BUN 10.1 Creatinine 1.0 Est GFR (CKD-EPI)AfAm 102.69 Est GFR (CKD-EPI)NonAf 88.61 Random Glucose 81 Calcium 8.4 L Phosphorus 3.3 Magnesium 2.0 Blood Type A POSITIVE Antibody Screen Negative HOSPITAL COURSE: Stef Blount is a 49 year old male with past medical history of kidney stones admitted for left nephrolithiasis. Spiral CT noted the patient had left hydronephrosis with proximal left ureteral 7mm stone in proximal left ureter. Urology was consulted and removed the stone and placed a stent. Patient's pain was controlled with pain medications and was given IV fluids. Patient tolerated the surgery well, had wilkes removed, and was spontaneously passing urine. The patient was started on post-op antibiotics which after discussion with Dr. Crisostomo, the patient will complete a total of 5 days. The patient was advised to follow up with urology outpatient. 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 Was advised to get an MRI outpatient which can be ordered by urology. Patient was started on Keflex for an additional 4 days, and given ibuprofen and tylenol for pain. Patient was advised to follow up his PCP, urology, and nephrol ogy. Patient was advised of the plan, was in agreement, and reiterated it. Patient was discharged in stable medical condition. Date of Admission:06/09/19 Date of Discharge: 06/10/19 Minutes to complete discharge: 35 Discharge Summary Problems reviewed: Yes Reason For Visit: HYDRONEOHROSIS WITH URINARY OBSTRUCTION Current Active Problems Hydronephrosis with urinary obstruction due to renal calculus (Acute) Ureteral calculus (Acute) Condition: Improved - Instructions Diet, Activity, Other Instructions: You were admitted due to a kidney stone causing you pain. You had a procedure performed with the urologist to remove the stone and placed a stent in your ureter to allow for the flow of urine. MEDICATIONS START to take Keflex 500mg every 8 hours for an additional 4 days. Your last dose will be on June 12. You may take Tylenol for pain up to 1000mg every 6 hours, with a maximum of 4000mg per day. Do not overuse the Tylenol. Take ibuprofen 600mg every 8 hours only as needed for pain. Take it with food when you take it. REFERRALS Please follow up with your primary care physician, within 1 week. If you do not have a primary care physician, you may follow up with the resident's clinic for which the information is provided. Please follow up with the urologist, Dr. Ronal Crisostomo, within 1 week. You will have an ultrasound at that point and the stent removed. Please follow up with the finishing manager, Dr. Cuate Hook, within 1 week. SPECIAL INSTRUCTIONS If you have any symptoms of increasing back pain, increasing blood in the urine, fevers, chest pain, shortness of breath, or any other general feelings of unwellness, please call 911 or go to your nearest emergency room. You should expect bloody urine for the next few days. If you feel light headed , please contact your doctor right away. You need an MRI of the kidneys as you have a lesion on the left kidney, that needs to be evaluated ( might be a benign tumor) . The urologist can order the MRI for you. Referrals: [facility] [place] [facility] [place] [Provider Group] - 1 Week Ronal Crisostomo MD [Staff Physician] - 1 Week Cuate Hook MD [Staff Physician] - 1 Week Disposition: HOME - Home Medications Comprehensive Discharge Medication List: Ambulatory Orders Acetaminophen [Tylenol -] 500 mg PO Q6H #20 tablet 06/10/19 Cephalexin Monohydrate [Keflex -] 500 mg PO Q8H #12 capsule 06/10/19 Ibuprofen 600 mg PO Q8H PRN #20 tablet 06/10/19 Problem List - Problems (1) Hydronephrosis with urinary obstruction due to renal calculus Code(s): N13.2 - HYDRONEPHROSIS WITH RENAL AND URETERAL CALCULOUS OBSTRUCTION (2) Ureteral calculus Code(s): N20.1 - CALCULUS OF URETER This patient is new to me today: Yes Date on this admission: 06/10/19 Emergency Visit: Yes ED Registration Date: 06/09/19 Care time: The patient presented to the Emergency Department on the above date and was hospitalized for further evaluation of their emergent condition. Critical Care patient: No - Discharge Referral Referred to [facility] No
== END 2019-06-10 16:31 | disposition home or self-care (01) | DRG 661 ==
LOC: JER 04:09 → JERBED 05:58 → J6S 10:20
PROVIDERS: ADMIT Internal Medicine; ATTEND Internal Medicine
PROC: BT1FYZZ Fluoroscopy of Left Kidney, Ureter and Bladder using Other Contrast (ICD-10-PCS; principal; 2019-06-09 13:30)
PROC: 0T778DZ Dilation of Left Ureter with Intraluminal Device, Via Natural or Artificial Opening Endoscopic (ICD-10-PCS; 2019-06-09 13:30)
PROC: 0TC78ZZ Extirpation of Matter from Left Ureter, Via Natural or Artificial Opening Endoscopic (ICD-10-PCS; 2019-06-09 13:30)
DX: N13.2 Hydronephrosis with renal and ureteral calculous obstruction (principal); R31.9 Hematuria, unspecified; R10.9 Unspecified abdominal pain; R11.2 Nausea with vomiting, unspecified; R30.0 Dysuria; Z87.442 Personal history of urinary calculi
CPT/HCPCS: 36415; 74176-TC; 76000-TC-FY; 76775-TC; 80048; 80053; 81003; 83735; 84100; 85025; 85610; 85730; 86850; 86900; 86901; 87086; 93005; 93010; 94760; 99285-25; J0131; J7030